=== PATIENT | male | born 1990 | race African-American/Black ===

== ENCOUNTER 2016-05-18 18:22 | Emergency (ER) | payer MEDICAID ==
[~2016-05-18] VITALS: Ht 182.9 cm; Wt 72.6 kg
[2016-05-18] MEDS ORDERED: IBUPROFEN600 MG ORAL (20:14)
[2016-05-18 20:24] VITALS: BP 123/75
--- NOTE | 2016-05-19 10:20 | Diagnostic Imaging Report ---
Indication: PAIN Technique: 3 views right foot Comparison: none Findings: There is hallux valgus and metatarsus adductus. No acute fractures. No dislocations. Joint spaces are preserved. Impression: No acute process
--- NOTE | 2016-05-19 11:32 | Diagnostic Imaging Report ---
Indication: PAIN Technique: 3 views of the right ankle Comparison: none Findings: No acute fractures. No dislocations. Joint spaces are preserved Impression: Negative
--- NOTE | 2016-05-20 06:53 | Emergency Room Report ---
History of Present Illness General Chief Complaint: Lower Extremity Injury Source: Patient Present Illness HPI Patient is a 26-year-old male who presented after increased right ankle and foot pain. Patient had injured his right leg 1 day prior to arrival. Patient did not know the mechanism of injury. Patient stated he was having pain to the heel as well as to the lateral ankle. Patient was able to ambulate with pain. Patient denied any fevers or prior injury. the patient had sharp pain which did not radiate Allergies: Coded Allergies: No Known Allergies (Unverified , 05/18/16) Patient History Past Medical History: see triage record Reviewed Nursing Documentation: PMH: Agreed, PSxH: Agreed Nursing Documentation-PMH Past Medical History: No Stated History Review of Systems All Other Systems: negative except mentioned in HPI Physical Exam Vital Signs Date Time Temp Pulse Resp B/P Pulse Ox O2 Delivery O2 Flow Rate FiO2 05/18/16 18:30 98.2 88 16 123/75 99 Room Air General Appearance: well appearing, no apparent distress, alert, GCS 15, non- toxic Head: normocephalic, atraumatic ENT: hearing grossly normal, normal voice Neck: full range of motion, supple Respiratory: no respiratory distress, speaking full sentences Cardiovascular #1: normal inspection, regular rate, rhythm, no edema Musculoskeletal: back normal, no calf tenderness, swelling - swelling tenderness to anterior talofibular ligament, right heel Neurologic: normal gait Psychiatric: mood/affect normal Skin: no rash Medical Decision Making Diagnostic Impression: Primary Impression: Ankle sprain ER Course Patient presented for l ankle pain. Differential diagnosis included was not limited to vascular insufficiency, fracture, osteomyelitis, sprain, deep venous thrombosis. X-ray imaging of the ankle was obtained. X-ray imaging of the ankle 3 views interpreted by me showed normal alignment without evident fracture. X-rays of the right foot interpreted by me 3 views showed normal Bony alignment Without evident fracture. Patient placed in an Jose De Jesus wrap.The patient is advised to follow up with primary care doctor in 3-4 days. Patient is advised to return if any worsening condition or if any changes in status that are concerning. Last Vital Signs Date Time Temp Pulse Resp B/P Pulse Ox O2 Delivery O2 Flow Rate FiO2 05/18/16 20:24 98.2 16 123/75 99 Room Air 05/18/16 18:30 88 Status: improved Disposition: HOME, SELF-CARE Condition: Stable Scripts Ibuprofen* (MOTRIN*) 600 Mg Tablet 600 MG ORAL Q8H Y for For Pain, #30 TAB 0 Refills Prov: Luis Song 05/18/16 Referrals: NOT CHOSEN [facility]/,REFERRING (PCP) Patient Instructions: Ankle Sprain Luis Song May 20, 2016 06:53
== END 2016-05-18 20:25 | disposition home or self-care (01) ==
LOC: EMR 19:03
DX: S93.491A Sprain of other ligament of right ankle, initial encounter (principal); X58.XXXA Exposure to other specified factors, initial encounter; Y92.9 Unspecified place or not applicable
CPT/HCPCS: 29540; 99283

== ENCOUNTER 2018-02-18 11:45 | Emergency (ER) | payer MEDICAID ==
[~2018-02-18] VITALS: Ht 182.9 cm; Wt 70.3 kg
[~2018-02-18 11:45] MED LIST: IBUPROFEN600 MG ORAL
[2018-02-18] MEDS ORDERED: Methocarbamol 500mg tab ORAL ONE (12:15)
[2018-02-18] MEDS ORDERED: Ketorolac 30mg Inj IM ONE (12:15)
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
[2018-02-18 13:04] VITALS: BP 118/69
[2018-02-18] MEDS ORDERED: ROBAXIN500 MG PO (13:25)
[2018-02-18] MEDS ORDERED: LIDOCAINE700 M1 TP (13:25)
[2018-02-18] MEDS ORDERED: TRAMADOL HCL50 MG ORAL (13:25)
[2018-02-18 13:49] VITALS: BP 118/69
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
--- NOTE | 2018-02-19 10:12 | Diagnostic Imaging Report ---
Clinical Indication:Wrist pain Technique: 3 views of the left wrist Comparison: None Findings: No acute fractures. No dislocations. The joint spaces are preserved. Impression: Negative
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
== END 2018-02-18 13:49 | disposition home or self-care (01) ==
LOC: EMR 12:05
DX: S09.90XA Unspecified injury of head, initial encounter (principal); S80.02XA Contusion of left knee, initial encounter; S63.502A Unspecified sprain of left wrist, initial encounter; V43.52XA Car driver injured in collision with other type car in traffic accident, initial encounter; Y92.410 Unspecified street and highway as the place of occurrence of the external cause; M79.89 Other specified soft tissue disorders; M79.645 Pain in left finger(s); R51 Headache
CPT/HCPCS: 29130; 70450; 70486; 73110; 73562; 96372; 99284; J1885